=== PATIENT | male | born 1940 | race Caucasian/White ===

== ENCOUNTER 2021-12-08 17:04 | Emergency (ER) | payer MEDICARE, OTHER ==
[~2021-12-08 17:04] MED LIST: ADULT LOW DOSE81 MG PO; AMARYL4 MG PO; CLONAZEPAM2 MG PO; COREG 6.25MG6.25 MG PO; COZAAR50 MG PO; DIGITEK125 MCG PO; FOLIC ACID1 MG PO; GLUCOPHAGE1000 MG PO; HCTZ25 MG PO; ISOSORBIDE MONO60 M1 PO; KEFLEX250 MG PO; LEVOXYL100 MCG PO; MAG-OXIDE 400M400 MG PO; NORVASC5 MG PO; PLAVIX75 MG PO; PRAVACHOL20 MG PO; TENCON 50-3251 EACH PO; VITAMIN D2000 UNI1 PO
[2021-12-08] MEDS ORDERED: KEFLEX250 MG PO ×2 (19:14→19:31)
== END 2021-12-08 19:30 | disposition home or self-care (01) ==
LOC: FER 17:04
DX: L03.115 Cellulitis of right lower limb (principal); I10 Essential (primary) hypertension; E11.9 Type 2 diabetes mellitus without complications; I48.91 Unspecified atrial fibrillation; Z79.4 Long term (current) use of insulin; Z88.8 Allergy status to other drugs, medicaments and biological substances
CPT/HCPCS: 73630